=== PATIENT | male | born 1980 ===

== ENCOUNTER 2018-06-25 15:12 | Emergency (ER) | payer OTHER ==
[2018-06-25 15:19] VITALS: O2SAT 100
[2018-06-25 15:46] LABS: BASO % 0.2 % (0.0-2.0); EOS # 0.2 K/uL (0.0-0.7); EOS % 3.2 % (0.0-4.0); HEMOGLOBIN 16.2 g/dL (12.0-18.0); LYMPH # 2.3 K/uL (1.0-4.3); LYMPH % 31.4 % (20.0-40.0); MEAN CELL VOLUME 90.1 fL (80.0-94.0); MEAN CORPUSCULAR HEMOGLOBIN 32.3 pg (27.0-31.0); MEAN CORPUSCULAR HGB CONC 35.9 g/dL (33.0-37.0); MEAN PLATELET VOLUME 8.7 fL (7.2-11.7); MONO # 0.7 K/uL (0.0-0.8); MONO % 9.4 % (0.0-10.0); NEUT % 55.8 % (50.0-75.0); WHITE BLOOD COUNT 7.2 K/uL (4.8-10.8)
[2018-06-25 15:58] LABS: ALB/GLOB RATIO 1.4 (1.0-2.1); ALBUMIN 4.6 g/dL (3.5-5.0); ALT/SGPT 35 U/L (21-72); AST/SGOT 26 U/L (17-59); BLOOD UREA NITROGEN 11 mg/dL (9-20); CALCIUM 9.1 mg/dl (8.6-10.4); GFR NON-AFRICAN AMERICAN > 60
[2018-06-25 16:10] LABS: CK-MB 0.55 ng/mL (0.0-3.38)
--- NOTE | 2018-06-25 16:13 | RAD ---
Date of service: 06/25/2018 HISTORY: Chest pain COMPARISON: No prior. TECHNIQUE: Chest PA and lateral FINDINGS: LUNGS: No active pulmonary disease. PLEURA: No significant pleural effusion identified. No pneumothorax apparent. CARDIOVASCULAR: No aortic atherosclerotic calcification present. Normal cardiac size. No pulmonary vascular congestion. OSSEOUS STRUCTURES: No significant abnormalities. VISUALIZED UPPER ABDOMEN: Normal. OTHER FINDINGS: None. IMPRESSION: No active disease.
--- NOTE | 2018-06-25 16:13 | C.PDOC ---
History Of Present Illness 38 y/o male presents to the ER complaining of chest pain and left shoulder pain which has been present for the past 3 days. Patient states that pain is manily in the left upper chest and he describes the pain as pressure. Patient reports that he experienced some eye blurriness, however he is able to have clear vision when he focuses. Denies having SOB, fever, chills, nausea, vomiting, leg swelling, and recent travel. Time Seen by Provider: 06/25/18 15:21 Chief Complaint (Nursing): Chest Pain History Per: Patient History/Exam Limitations: no limitations Onset/Duration Of Symptoms: Days Current Symptoms Are (Timing): Still Present Severity: Moderate Quality: Pressure Past Medical History Reviewed: Historical Data, Nursing Documentation, Vital Signs Vital Signs: Last Vital Signs Temp 97.7 F 06/25/18 15:17 Pulse 79 06/25/18 15:17 Resp 16 06/25/18 15:17 BP 165/92 H 06/25/18 15:17 Pulse Ox 100 06/25/18 15:17 - Medical History PMH: No Chronic Diseases Surgical History: No Surg Hx Family History: States: No Known Family Hx - Social History Hx Alcohol Use: Yes Hx Substance Use: No - Immunization History Hx Tetanus Toxoid Vaccination: No Hx Pneumococcal Vaccination: No Review Of Systems Except As Marked, All Systems Reviewed And Found Negative. Constitutional: Negative for: Fever, Chills Cardiovascular: Positive for: Chest Pain Respiratory: Negative for: Cough, Shortness of Breath Gastrointestinal: Negative for: Nausea, Vomiting Physical Exam - Physical Exam Additional Physical Exam Comments: Constitutional: No acute distress. Head: Normocephalic. Atraumatic. Eyes: PERRL. ENT: Moist mucous membranes. Neck: Supple. Cardiovascular: Borderline tachycardic. Radial pulse 2+ bilaterally. Chest: No tenderness. Respiratory: Clear to auscultation bilaterally. GI: Soft. Nontender. Nondistended. Back: No CVA tenderness. Musculoskeletal: No tenderness or swelling of extremities. Skin: No rash. Neurologic: Alert, no focal deficit. ED Course And Treatment - Laboratory Results Result Diagrams: 06/25/18 15:40 06/25/18 15:40 O2 Sat by Pulse Oximetry: 100 (RA) Pulse Ox Interpretation: Normal - Radiology CXR: Interpreted by Me, Viewed By Me CXR Interpretation: Yes: No Acute Disease Medical Decision Making Medical Decision Making: Plan: --Labs --CXR --Toradol IM EKG NSR 90 bpm, no ST elevations. Enzymes negative. Dimer negative. Patient with glucose 200. Advised on hyperglycemia/DM. Advised on diet, exercise, and need for medication. Disposition - Disposition Disposition: HOME/ ROUTINE Disposition Time: 16:13 Condition: STABLE Instructions: Chest Pain That Is Not Caused by the Heart (DC), Diabetes Type 2 (DC) Forms: [employer] (Lebanese) - Clinical Impression Clinical Impression: Chest pain - Scribe Statement The provider has reviewed the documentation as recorded by the Scribe Mauri Kelley Provider Attestation: All medical record entries made by the Scribe were at my direction and personally dictated by me. I have reviewed the chart and agree that the record accurately reflects my personal performance of the history, physical exam, medical decision making, and the department course for this patient. I have also personally directed, reviewed, and agree with the discharge instructions and disposition.
[2018-06-25 16:55] VITALS: BP 129/86; PULSE 80; RESP 18; TEMP 97.9
--- NOTE | 2018-06-28 14:52 | CARD ---
APPROVED REPORT Date of service: 06/25/2018 EKG Measurement Heart [id number] <Conclusion> Normal sinus rhythm Nonspecific T wave abnormality Abnormal ECG
== END 2018-06-25 16:55 | disposition home or self-care (01) ==
LOC: C.ER 15:12
DX: R07.9 Chest pain, unspecified (principal)
CPT/HCPCS: 71046; 80053; 82550; 82553; 84484; 85025; 85378; 96374; 99285; J1885